=== PATIENT | male | born 1955 | race Caucasian/White ===

== ENCOUNTER 2024-09-21 12:02 | Emergency (ER) | payer MEDICARE, BC, SELFPAY ==
[2024-09-21 12:11] VITALS: BP 143/80; PULSE 70; RESP 18; TEMP 36.5; O2SAT 95; BMI 360.1
[2024-09-21 12:13] VITALS: PULSE 67
--- NOTE | 2024-09-21 12:13 | XR_ITS ---
Examination: CT brain head without contrast. 2-D sagittal coronal reconstructions Date and time of exam:September 21, 2024 1223 hours INDICATIONS: Stroke alert, onset slurred vision severe headache beginning 8:00 AM this morning CTDI: vol (mGy):59.1 DLP: (mGycm):1187 Technique: Multiple CT axial sections of the brain have been obtained, 5 mm slice thickness. Contrast has not been administered. 2-D sagittal, coronal reconstructions have been obtained Low dose protocols were performed. One or more of the following dose reduction techniques were used; automated exposure control, adjustment of the mA and/or KV according to patient size, use of iterative reconstruction technique. Findings: No significant ventricular enlargement. Intra-axial or extra-axial hemorrhage density is not seen. No mass effect or midline shift Basal cisterns are not remarkable. Fourth ventricle is midline. Cranial vault intact. Impression: Negative for acute hemorrhage, mass effect or midline shift
--- NOTE | 2024-09-21 12:13 | XR_ITS ---
Examination: CTA carotids with intravenous contrast CTA brain, head with intravenous contrast. 2-D sagittal, coronal reconstructions. 3-D reconstructions. Exam date and time: September 21, 2024 1227 hours INDICATIONS: Stroke alert, onset focal neurologic deficit including blurred vision beginning 8:00 AM this morning CTDI: vol (mGy) 25.7 DLP: (mGycm) 157 Technique: Multiple CTA axial brain, head carotid images post intravenous contrast injection 75 cc, Isovue-370. 2-D sagittal, coronal reconstructions. 3-D reconstructions, 3-D post processing including vascular maximum intensity projection images. Low dose protocols were performed. One or more of the following dose reduction techniques were used; automated exposure control, adjustment of the mA and/or KV according to patient size, use of iterative reconstruction technique. Findings: 6 mm left thyroid nodule No significant common carotid carotid bifurcation or internal carotid artery stenoses Codominant vertebral arteries with no critical stenoses Moderate calcification juxtasellar portions of both internal carotid arteries No cerebral large vessel arterial occlusions or thrombus IMPRESSION: No significant neck arterial stenoses No cerebral large vessel arterial occlusions or thrombus 6 mm left thyroid nodule
--- NOTE | 2024-09-21 12:13 | EKG_ITS ---
[facility] Test Date: 2024-09-21 Pat Name: FRANCISCO CHRISTIANSON Department: Room: - Gender: Male Manager Parking: : [id number] Requested By: Pablo Altamirano Order Number: [id number] Reading MD: Pablo Altamirano Measurements Intervals Holcomb Rate: 63 P: -62 UT: 217 QRS: 0 QRSD: 117 T: 62 QT: 423 QTc: 436 Interpretive Statements ECTOPIC ATRIAL RHYTHM WITH FIRST DEGREE AV BLOCK POSSIBLE LEFT ATRIAL ENLARGEMENT [-0.1mV P-WAVE IN V1/V2] MODERATE INTRAVENTRICULAR CONDUCTION DELAY [110+ ms QRS DURATION] Compared to ECG 03/12/2024 00:18:39 Ectopic atrial rhythm now present First degree AV block now present T-wave abnormality no longer present /store/S0/[id number]/ecg/[id number].pdf
--- NOTE | 2024-09-21 12:13 | PD.EDRME ---
Rapid Medical Screening Exam E Arrival date/time: 09/21/24 12:02 68-year-old male with a history of hypertension presents to the emergency room with a chief complaint of left-sided headache, left-sided facial numbness, uneven pupils, and was sent by his primary care provider Dr. Dwyer to rule out a stroke. I have greeted and performed a focused initial assessment of this patient. A comprehensive ED assessment and evaluation of the patient, analysis of all test results, and completion of the medical decision making process will be conducted by additional ED providers. Chief Complaint: Headache Vital signs: Vital Signs Temperature 97.7 F 09/21/24 12:11 Pulse Rate 70 09/21/24 12:11 Respiratory Rate 18 09/21/24 12:11 Blood Pressure 143/80 H 09/21/24 12:11 Pulse Oximetry (%) 95 09/21/24 12:11 Oxygen Delivery Method Room Air 09/21/24 12:11 Vital signs reviewed by provider: Yes
[2024-09-21 12:31] LABS: Basophils % (Auto) 0 % (0-2.5); Eosinophils % (Auto) 0 % (0-10); Hematocrit 45.5 % (41.0-53.0); Hemoglobin 15.1 g/dL (13.5-16.0); Immature Granulocytes % (Auto) 0 % (0-0); Immature Granulocytes Auto 0.02 Thou/mm3 (0.00-0.00); Lymphocytes # (Auto) 0.9 Thou/mm3 (1.0-4.8); Lymphocytes % (Auto) 10 % (10-50); Mean Corpuscular HGB Conc 33.2 g/dl (31.0-37.0); Mean Corpuscular Hemoglobin 27.5 pg (25.0-35.0); Mean Corpuscular Volume 83 fL (80-100); Monocytes # (Auto) 0.3 Thou/mm3 (0.0-0.8); Monocytes % (Auto) 3 % (0-12); Neutrophils # (Auto) 7.8 Thou/mm3 (1.8-7.7); Neutrophils % (Auto) 86 % (37-80); Nucleated Red Blood Cell % 0 /100 WBC (0); Platelet Count 294 Thou/mm3 (140-440); RDW Standard Deviation 40.8 fL (35.1-43.9); Red Blood Count 5.49 Miln/mm3 (4.50-5.90); White Blood Count 9.1 Thou/mm3 (3.8-10.6)
[2024-09-21 12:46] LABS: Partial Thromboplastin Time 25.4 Seconds (22.0-36.0); Prothrombin Time 11.3 Seconds (9.0-12.2)
[2024-09-21 12:51] LABS: B-Type Natriuretic Peptide 32 pg/mL (0-100)
--- NOTE | 2024-09-21 12:55 | PD.EDHA ---
ED Headache RME/HPI General Chief Complaint: Headache Stated Complaint: SPRING FEW DAYS, WORSE SINCE YEST, R/O CVA FROM MD Time Seen by Provider: 09/21/24 12:27 Arrival date/time: 09/21/24 12:02 RME / HPI RME / HPI Narrative: 09/21/24 12:02 68-year-old male with a history of hypertension presents to the emergency room with a chief complaint of left-sided headache, left-sided facial numbness, uneven pupils, and was sent by his primary care provider Dr. Dwyer to rule out a stroke. I have greeted and performed a focused initial assessment of this patient. A comprehensive ED assessment and evaluation of the patient, analysis of all test results, and completion of the medical decision making process will be conducted by additional ED providers. DR. TYSON MAIN ED EVALUATION: 68 year old male with history of hypertension presents to the ED sent by PCP Dr. Dwyer for evaluation of headache that began spontaneously last night at 8pm while watching TV. Accompanied by left eye pain, described as stabbing in sensation that is felt inside and behind the eye, left eye blurred vision, and seeing halos. Patient reports history of headaches in the past where it also begins with left eye pain and blurred vision. States symptoms persisted this morning with increased blurred vision and consulted with PCP who advised he come here for further evaluation/treatment. Patient mentioned he has been evaluated by burrito maker before and told he has increased eye pressures and is in the process of being referred to see ophthalmology. Denies shon photophobia. Denies fevers, chills, loss of function/movement. Related Data Home Medications ?Medication ?Instructions ?Recorded ?Confirmed alfuzosin 10 mg tablet,extended 10 mg PO QDAY 08/30/23 08/30/23 release 24 hr amlodipine 5 mg tablet 5 mg PO HS 08/30/23 08/30/23 losartan 100 12.5 tab PO QDAY 08/30/23 09/02/23 mg-hydrochlorothiazide 12.5 mg tablet tadalafil 5 mg tablet 5 mg PO QDAY 08/30/23 08/30/23 meloxicam 15 mg tablet 15 mg PO DAILY 09/02/23 09/02/23 Previous Rx's ?Medication ?Instructions ?Recorded acetazolamide 250 mg tablet 250 mg PO BID #3 tabs 09/21/24 brimonidine 0.1 %-dorzolamide 2 % 1 drp ophthalmic (eye) BID #2 mL 09/21/24 eye drops latanoprost 0.005 % eye drops 1 drp ophthalmic (eye) QPM #2.5 mL 09/21/24 timolol maleate 0.5 % eye drops 1 drp ophthalmic (eye) BID #5 mL 09/21/24 Allergies Allergy/AdvReac Type Severity Reaction Status Date / Time erythromycin base Allergy Intermediate Agitated Verified 09/21/24 12:05 Review of Systems Review of Systems Narrative Review of Systems: Gen: No fever, no chills, no weight loss EYES: No discharge, + visual changes,+pain HEENT: No ear pain, no congestion, no sore throat PULM: no shortness of breath, no cough, no congestion CV: No chest pain, no dyspnea on exertion, no palpitations, no chest tightness GI: No nausea, no vomiting, no diarrhea, no pain, no constipation : No frequency, no urgency,? no dysuria Musc/skel: No joint pain, no back pain Skin: No rash, no ecchymosis, no lesions Psyc: No hallucinations, no depression Heme/Lymph: No easy bleeding or bruising tendencies Neuro: No weakness, + headache Past Medical History Past Medical History CARDIAC: Positive Cardiac Disorders and Hypertension RESPIRATORY: Positive Sleep Apnea GASTROINTESTINAL: Positive Gastrointestinal Disorders (hernia) GENITOURINARY: Positive Genitourinary Disorders, Prostate Cancer and Benign Prostatic Hyperplasia MUSCULOSKELETAL: Positive Musculoskeletal Disorders and Arthritis OTHER HISTORY: Positive Cancer and Prostate Cancer Family History FAMILY HISTORY: Negative Family Cardiac Disorders Surgical History SURGICAL: Positive Joint Replacement; Negative Cardiac Surgery or Abdominal Surgery Social History SMOKING STATUS: Current every day smoker ED Exam Narrative Physical exam: GENERAL APPEARANCE: AxOx4, nontoxic appearing HEENT: NC, AT. MMM. Left eye is injected, anterior chamber is slightly cloudy, pupil is nonreactive. Pressure in the right eye is 18, pressure in the left eye is not measurable. EOMI, oropharynx clear. NECK: Supple without lymphadenopathy. No stiffness or restricted ROM. HEART: Normal rate and regular rhythm, normal S1/S1, no m/r/g LUNGS: CTAB, moving air well. No crackles or wheezes are heard. ABDOMEN: Soft, nontender, nondistended with good bowel sounds heard. BACK: No midline C/T/L spine pain or deformity, No CVAT, no obvious deformity. EXTREMITIES: Without cyanosis, clubbing or edema. MUSCULOSKELETAL: FROM of all major joints, no chest tenderness NEUROLOGICAL: Grossly nonfocal. Alert and oriented, moving all 4 extremities. CN not formally tested but appear grossly intact. Skin: Warm and dry without any rash. Course Quality Measures none Orders Category Date Time Status Bedside Blood Glucose NOW Care 09/21/24 12:13 Active [employer] Worker NOW Care 09/21/24 12:13 Active Continuous Pulse Oximetry NOW Care 09/21/24 12:13 Completed EKG (ED ONLY) *Do not use* NOW Care 09/21/24 12:13 Completed EKG (ED ONLY) *Do not use* NOW Care 09/21/24 14:57 Completed Insert IV NOW Care 09/21/24 12:13 Active NIH Stroke Scale now Care 09/21/24 12:13 Active NPO NOW Care 09/21/24 12:13 Active Nurse Swallow Screen x1 Care 09/21/24 12:13 Active Consult to Neurology / Tele-Neurology Routine Cons 09/21/24 12:13 Active Referral - Mate Fishing Vessel Stat Cons 09/21/24 14:[address] angio stroke protocol Stat Exams 09/21/24 12:[address] stroke protocol Stat Exams 09/21/24 12:13 Completed EKG (ED Only) Stat Exams 09/21/24 12:13 Draft EKG (ED Only) Stat Exams 09/21/24 14:57 Draft B-Type Natriuretic Peptide Stat Lab 09/21/24 12:17 Completed CBC Stat Lab 09/21/24 12:17 Completed Comprehensive Metabolic Panel Stat Lab 09/21/24 12:17 Completed Drug Screen,Urine Stat Lab 09/21/24 12:13 Ordered Magnesium Stat Lab 09/21/24 12:17 Completed Partial Thromboplastin Time Stat Lab 09/21/24 12:17 Completed Prothrombin Time with INR Stat Lab 09/21/24 12:17 Completed Troponin I Stat Lab 09/21/24 12:17 Completed Urinalysis Stat Lab 09/21/24 12:13 Ordered Urine Culture Stat Lab 09/21/24 12:13 Ordered ACETAzolaMIDE SOD [Diamox Inj] 500 mg Med 09/21/24 13:54 Discontinued Sodium Chloride 0.9% [Ns] 50 ml IV X1 Brimonidine Op Tierra 0.1% [Alphagan Op Tierra 0.1%] Med 09/21/24 13:54 Discontinued 1 drop BOTH EYES X1 ONE DiphenhydrAMINE INJ [Benadryl Inj] Med 09/21/24 13:33 Discontinued 50 mg IVP X1 ONE Ketorolac Inj [Toradol Inj] Med 09/21/24 13:33 Discontinued 15 mg IVP X1 ONE Latanoprost Op Tierra 0.005% [Xalatan Op Tierra 0.005%] Med 09/21/24 13:54 Discontinued See Dose Instructions LEFT EYE X1 ONE Metoclopramide Inj [Reglan Inj] Med 09/21/24 13:33 Discontinued 10 mg IV X1 ONE Morphine Inj Med 09/21/24 14:22 Discontinued 6 mg IVP Q1H ONE TETRACAINE Op Tierra 0.5% [Pontocaine Op Tierra 0.5%] Med 09/21/24 13:33 Discontinued 1 drop BOTH EYES X1 ONE Timoptic Op Tierra 0.5% Med 09/21/24 13:56 Discontinued 1 drop LEFT EYE X1 ONE Reevaluation(s) Reevaluation #1: We reviewed all the results, analysis, and treatment plans. Patient is amenable to discharge. Strict return precautions were outlined. Patient was discharged in stable condition. Aware of brush head maker Dr. Vega recommendation and will be seen in his office tomorrow at 08:00 am. Time: 16:50 Vital Signs Vital signs: Vital Signs Temperature 97.7 F 09/21/24 12:11 Pulse Rate 70 09/21/24 12:11 Respiratory Rate 18 09/21/24 12:11 Blood Pressure 143/80 H 09/21/24 12:11 Pulse Oximetry (%) 95 09/21/24 12:11 Oxygen Delivery Method Room Air 09/21/24 12:11 Pulse ox is 95% on room air which is adequate. Headache Patient data External records reviewed:: [facility] previous records (I reviewed ED visit on 03/12/2024 ) Clinical information provided by:: patient Social determinants that could affect healthcare access:: none Patient has the following chronic illnesses:: HTN How is presenting disease/condition affected by chronic disease/condition?: exacerbated by Evaluation data The following diagnostics were reviewed and interpreted by me:: lab results, radiology exam(s) and EKG tracing(s) Lab and/or radiology exams considered but not ordered:: None Interpretation Summary: Ordering Physician: Pablo Antonio Date of Service: 09/21/24 Procedure(s): CT stroke protocol Accession Number(s): [id number] cc: Magdalena Rojas NP; Pablo Antonio; Sami Amos MD~ Examination: CT brain head without contrast. 2-D sagittal coronal reconstructions Date and time of exam:September 21, 2024 1223 hours INDICATIONS: Stroke alert, onset slurred vision severe headache beginning 8:00 AM this morning CTDI: vol (mGy):59.1 DLP: (mGycm):1187 Technique: Multiple CT axial sections of the brain have been obtained, 5 mm slice thickness. Contrast has not been administered. 2-D sagittal, coronal reconstructions have been obtained Low dose protocols were performed. One or more of the following dose reduction techniques were used; automated exposure control, adjustment of the mA and/or KV according to patient size, use of iterative reconstruction technique. Findings: No significant ventricular enlargement. Intra-axial or extra-axial hemorrhage density is not seen. No mass effect or midline shift Basal cisterns are not remarkable. Fourth ventricle is midline. Cranial vault intact. Impression: Negative for acute hemorrhage, mass effect or midline shift Dictated By: Sami Amos MD Signed By:<Electronically signed by Sami Amos MD in OV>09/21/24 1227 Ordering Physician: Pablo Antonio Date of Service: 09/21/24 Procedure(s): CT angio stroke protocol Accession Number(s): [id number] cc: Magdalena Rojas NP; Pablo Antonio; Sami Amos MD~ Examination: CTA carotids with intravenous contrast CTA brain, head with intravenous contrast. 2-D sagittal, coronal reconstructions. 3-D reconstructions. Exam date and time: September 21, 2024 1227 hours INDICATIONS: Stroke alert, onset focal neurologic deficit including blurred vision beginning 8:00 AM this morning CTDI: vol (mGy) 25.7 DLP: (mGycm) 157 Technique: Multiple CTA axial brain, head carotid images post intravenous contrast injection 75 cc, Isovue-370. 2-D sagittal, coronal reconstructions. 3-D reconstructions, 3-D post processing including vascular maximum intensity projection images. Low dose protocols were performed. One or more of the following dose reduction techniques were used; automated exposure control, adjustment of the mA and/or KV according to patient size, use of iterative reconstruction technique. Findings: 6 mm left thyroid nodule No significant common carotid carotid bifurcation or internal carotid artery stenoses Codominant vertebral arteries with no critical stenoses Moderate calcification juxtasellar portions of both internal carotid arteries No cerebral large vessel arterial occlusions or thrombus IMPRESSION: No significant neck arterial stenoses No cerebral large vessel arterial occlusions or thrombus 6 mm left thyroid nodule Dictated By:Sami Amos MD Signed By:<Electronically signed by Sami Amos MD in OV>09/21/24 1347 Medications / Prescriptions Medications or Prescriptions considered but not ordered:: None Medication administrations:: Medication Administration History Discontinued Medications Brimonidine Tartrate (Brimonidine Op Tierra 0.1% 5 Ml Btl) 1 drop BOTH EYES X1 ONE Stop: 09/21/24 13:55 Last Admin: 09/21/24 14:21 Dose: 1 drop Documented By: DANNI Diphenhydramine HCl (Diphenhydramine Inj 50 Mg/Ml Vial) 50 mg IVP X1 ONE Stop: 09/21/24 13:34 Last Admin: 09/21/24 13:39 Dose: 50 mg Documented By: IZZY Acetazolamide Sodium 500 mg/ (Sodium Chloride) 50 mls @ 100 mls/hr IV X1 ONE Stop: 09/21/24 14:23 Last Infusion: 09/21/24 15:21 Dose: Infused Documented By: Admin: 09/21/24 14:51 Dose: 100 mls/hr Documented By: IZZY Ketorolac Tromethamine (Ketorolac Inj 30 Mg/Ml Vial) 15 mg IVP X1 ONE Stop: 09/21/24 13:34 Last Admin: 09/21/24 13:39 Dose: 15 mg Documented By: IZYZ Latanoprost (Latanoprost Op Tierra 0.005% 2.5 Ml Btl) 0 drop LEFT EYE X1 ONE Stop: 09/21/24 13:55 Last Admin: 09/21/24 14:28 Dose: 1 drop Documented By: DANNI Metoclopramide HCl (Metoclopramide Inj 5 Mg/Ml Vial 2 Ml) 10 mg IV X1 ONE; Protocol Stop: 09/21/24 13:34 Last Admin: 09/21/24 13:43 Dose: 10 mg Documented By: IZZY Morphine Sulfate (Morphine Sulf Inj 10 Mg/Ml Vial) 6 mg IVP Q1H ONE Stop: 09/21/24 14:23 Last Admin: 09/21/24 14:25 Dose: 6 mg Documented By: DANNI Tetracaine HCl (Tetracaine Pf Op Tierra 0.5% 4 Ml Drpette) 1 drop BOTH EYES X1 ONE Stop: 09/21/24 13:34 Last Admin: 09/21/24 13:45 Dose: 1 drop Documented By: IZZY Comments: MEDICATION GIVEN BY DR. TYSON Timolol Maleate (Timolol Op Tierra 0.5% 5 Ml Btl) 1 drop LEFT EYE X1 ONE Stop: 09/21/24 13:57 Last Admin: 09/21/24 14:20 Dose: 1 drop Documented By: DANNI Comments: left eye See above Consultations Consultation(s) initiated? (list below): Yes Consultation #1 (Physician, Specialty, Details): I spoke with transfer nurse at [facility]. Discussed patients PMHx, HPI, ED course, exam findings, labs, and radiology results. Time: 14:00 Consultation #2 (Physician, Specialty, Details): I spoke with brush head maker Dr. Rodriguez at [facility]. Made aware of medications given, Timolol and Brimonidine, causing atrial dysrhythmia. We discussed other mediation options which include Metipranolol however advised holding off for now due to dysrhythmia. Time: 16:30 Consultation #3 (Physician, Specialty, Details): Dr. Vega reports he will see patient tomorrow at 08:00 AM in his office. Time: 16:50 Diagnosis Differential diagnosis headache: migraine, tension headache, subarachnoid hemorrhage and headache Most likely diagnosis given after review of the tests above:: Acute closed-angle glaucoma Admission Indicated Admission indicated?: not indicated Admission Request Was there a request for admission?: No Disposition Plan Disposition Plan: Discharge Discharge Attestation Discharge Attestation: The patient and all family members were given an opportunity to ask questions and understood the discharge instructions. Discharge instructions specifically effects, indications for sooner follow up or return to the emergency department, and the expected course of current diagnosis. Patient condition: Stable Discharge Plan Plan Patient Disposition: HOME (Self Care) Prescriptions/Referrals Prescriptions/Med Rec: No Action alfuzosin 10 mg tablet extended release 24 hr 10 mg PO QDAY amlodipine 5 mg tablet 5 mg PO HS Patient Comments: TAKE 1 TABLET BY MOUTH EVERY DAY tadalafil 5 mg tablet 5 mg PO QDAY Patient Comments: TAKE 1 TABLET BY MOUTH EVERY DAY NEEDED FOR ERECTILE DYSFUNCTION losartan-hydrochlorothiazide 100-12.5 mg tablet 12.5 tab PO QDAY Patient Comments: TAKE ONE TABLET BY MOUTH ONE TIME DAILY 90 DAYS meloxicam 15 mg tablet 15 mg PO DAILY Patient Comments: TAKE 1 TABLET BY MOUTH EVERY DAY Referrals: Magdalena Rojas NP [Primary Care Provider] - In 1 week Gigi Vega MD [Referring Provider] - 09/22/24 8:00 am (Phone number: [phone] Present to the office at 08:00 AM tomorrow and let the waterfront director know that you were in the ED, spoke to Dr. Vega, and are an on-call patient. ) Problem List Clinical Impression: Acute closed-angle glaucoma Patient/Caregiver Discharge Instructions Education Materials: ED Glaucoma, Narrow-Angle (Acute) Print Language: Cypriot Stand Alone Forms: [facility] Award Info., Patient Portal Info Letter
[2024-09-21 12:57] LABS: Alanine Aminotransferase 13 U/L (10-49); Albumin, Serum 4.5 gm/dL (3.4-4.8); Albumin/Globulin Ratio 1.4 (1.2-2.2); Alkaline Phosphatase 74 U/L (46-116); Anion Gap 9 (7-16); Aspartate Amino Transferase 15 U/L (0-34); BUN/Creatinine Ratio 14 Ratio (12-20); Bilirubin,Total 0.7 mg/dL (0.3-1.2); Blood Urea Nitrogen 14 mg/dL (9-23); Calcium 9.1 mg/dL (8.3-10.6); Calcium (Corrected) 9.1 mg/dL (8.5-10.1); Carbon Dioxide 22.6 mMol/L (20.0-31.0); Chloride 104 mMol/L (98-107); Estimated Creatinine Clearance 477.4 mL/min (>60); Globulin 3.3 gm/dL (2.3-3.5); Glucose 151 mg/dL (74-106); Osmolality,Calculated 275 (275-295); Potassium 3.8 mMol/L (3.4-5.1); Sodium 136 mMol/L (136-145); Total Protein 7.8 gm/dL (5.7-8.2); Troponin I < 0.020 ng/mL (0.0-0.045); eGFR > 60 See Note
[2024-09-21 13:03] VITALS: BP 146/90; PULSE 66; RESP 18; O2SAT 96
[2024-09-21] MEDS: KETOROLAC INJ 30 MG/ML VIAL 15 MG IVP (13:39)
[2024-09-21] MEDS: DiphenhydrAMINE INJ 50 MG/ML VIAL IVP (13:39)
[2024-09-21] MEDS: METOCLOPRAMIDE INJ 5 MG/ML VIAL 2 ML 10 MG IV (13:43)
[2024-09-21] MEDS: TETRACAINE PF OP SOL 0.5% 4 ML DRPETTE 1 DROP BOTH EYES (13:45)
--- NOTE | 2024-09-21 13:52 | ESCONSULT_ITS ---
Tele Neuro Consultation Consultation Date 09/21/24 Most Recent Vital Signs Last Vital Signs Temp 97.7 F 09/21/24 12:11 Pulse 66 09/21/24 13:03 Resp 18 09/21/24 13:03 BP 146/90 H 09/21/24 13:03 Pulse Ox 96 09/21/24 13:03 O2 Del Method Room Air 09/21/24 13:03 Laboratory-Coagulation Panel PT 11.3 Seconds (9.0-12.2) 09/21/24 12:17 INR 1.0 (0.9-1.3) 09/21/24 12:17 APTT 25.4 Seconds (22.0-36.0) 09/21/24 12:17 Consultation Narrative [facility]rology [facility] Patient Name:???Elijah Leblanc Date of :???1955 Identification Number:??? Date of Service:???09/21/2024 12:22:42 Diagnosis:?H53.8 - Blurred Vision ?G44.59 - Other complicated headache syndrome Impression: ?68 yr old man hx of HTN, comes to ER with L eye retro orbital pain and blurred vision L eye tearing. He reported ssx started last night at 8 pm, and persist now. He has no hx of migraine, he has had these symptoms in past, unclear diagnosis. ?He has had vomiting also due to pain, he has photophobia. ?Exam- L facial droop, L face numbness, L pupil sluggish reactive, redness, extraocular muscles intact and no vf cut. nih 2. ?CT head no acute changes. ? ?Diff Dx: r/o ophthalmological etiology, retinal detachment, vitreous hemorrhage, migraine, cluster headache, r/o aneurysm, CRAO, CVA, other, not iv thrombolytic candidate. Our recommendations are outlined below. Recommendations: ? Stroke/Telemetry Floor ? Neuro Checks ? Bedside Swallow Eval ? DVT Prophylaxis ? IV Fluids, Normal Saline ? Head of Bed 30 Degrees ? Euglycemia and Avoid Hyperthermia (PRN Acetaminophen) ?- CTA head neck pending r/o aneurysm ?- rec ophthalmological evaluation and exam ?- migraine/ cluster headache symptomatic treatment ?- CVA work up to with MRI brain to r/o CVA if no ophthalmological cause found ?- Neuro fup ?d/w pt, RN ?d/w ER Dr Manning all the recs. Sign Out: ? Discussed with Emergency Department Provider Advanced Imaging:Advanced imaging has been ordered. Results pending. Metrics: Last Known Well: 09/20/2024 20:00:00 Dispatch Time: 09/21/2024 12:22:42 Arrival Time: 09/21/2024 12:02:00 Initial Response Time: 09/21/2024 12:30:24Symptoms: L eye blurry vision, headache. Initial patient interaction: 09/21/2024 12:35:01 NIHSS Assessment Completed: 09/21/2024 12:40:01Patient is not a candidate for Thrombolytic. Thrombolytic Medical Decision: 09/21/2024 12:41:15Patient was not deemed candidate for Thrombolytic because of following reasons: LKW outside 4.[address] head showed no acute hemorrhage or acute core infarct. Primary Provider Notified of Diagnostic Impression and Management Plan on: 09/21/2024 13:01:44 History of Present Illness:Patient is a 68 year old Male. Patient was brought by private transportation with symptoms of L eye blurry vision, headache. 68 yr old man hx of HTN, comes to ER with L eye retro orbital pain and blurred vision L eye tearing. He reported ssx started last night at 8 pm, and persist now. He has no hx of migraine, he has had these symptoms in past, unclear diagnosis. He has had vomiting also due to pain, he has photophobia. Exam- L facial droop, L face numbness, L pupil sluggish reactive, redness, extraocular muscles intact and no vf cut. nih 2. ? Past Medical History: ?Hypertension Other PMH:? prostate ca Medications: No Anticoagulant use? No Antiplatelet use Reviewed EMR for current medications Allergies:? Reviewed Social History: Smoking: Yes Family History: There is no family history of premature cerebrovascular disease pertinent to this consultation ROS : 14 Points Review of Systems was performed and was negative except mentioned in HPI. Past Surgical History: There Is No Surgical History Contributory To Today?s Visit ? Examination: BP(150/94),?Pulse(70),?Blood Glucose(152) 1A: Level of Consciousness - Alert; keenly responsive?+ 0 1B: Ask Month and Age - Both Questions Right?+ 0 1C: Blink Eyes & Squeeze Hands - Performs Both Tasks?+ 0 2: Test Horizontal Extraocular Movements - Normal?+ 0 3: Test Visual Laura - No Visual Loss?+ 0 4: Test Facial Palsy (Use Grimace if Obtunded) - Minor paralysis (flat nasolabial fold, smile asymmetry)?+ 1 5A: Test Left Arm Motor Drift - No Drift for 10 Seconds?+ 0 5B: Test Right Arm Motor Drift - No Drift for 10 Seconds?+ 0 6A: Test Left Leg Motor Drift - No Drift for 5 Seconds?+ 0 6B: Test Right Leg Motor Drift - No Drift for 5 Seconds?+ 0 7: Test Limb Ataxia (FNF/Heel-Dockery) - No Ataxia?+ 0 8: Test Sensation - Mild-Moderate Loss: Less Sharp/More Dull?+ 1 9: Test Language/Aphasia - Normal; No aphasia?+ 0 10: Test Dysarthria - Normal?+ 0 11: Test Extinction/Inattention - No abnormality?+ 0 NIHSS Score:?2 NIHSS Free Text :?headache, L blurred vision, L pupil dilated Pre-Morbid Modified Sakina Scale:1 Points = No significant disability despite symptoms; able to carry out all usual duties and activities Spoke with :?ED Dr Manning This consult was conducted in real time using interactive audio and video technology. Patient was informed of the technology being used for this visit and agreed to proceed. Patient located in hospital and provider located at home/office setting. Patient is being evaluated for possible acute neurologic impairment and high probability of imminent or life-threatening deterioration. I spent total of 45 minutes providing care to this patient, including time for face to face visit via telemedicine, review of medical records, imaging studies and discussion of findings with providers, the patient and/or family. Dr Sonia Ng [facility] For Inpatient follow-up with [facility] physician please call [facility] at . As we are not an outpatient service for any post hospital discharge needs please contact the hospital for assistance. If you have any questions for the [facility] physicians or need to reconsult for clinical or diagnostic changes please contact us via [facility] at . ?
[2024-09-21] MEDS: TIMOLOL OP SOL 0.5% 5 ML BTL 1 DROP LEFT EYE (14:20)
[2024-09-21] MEDS: BRIMONIDINE OP SOL 0.1% 5 ML BTL 1 DROP BOTH EYES (14:21)
[2024-09-21] MEDS: MORPHINE SULF INJ 10 MG/ML VIAL 6 MG IVP (14:25)
[2024-09-21] MEDS: LATANOPROST OP SOL 0.005% 2.5 ML BTL LEFT EYE (14:28)
[2024-09-21] MEDS: ACETAzolaMIDE SOD 500 MG in SODIUM CHLORIDE 0.9% 50 ML 100 MG IV (14:51)
--- NOTE | 2024-09-21 14:57 | EKG_ITS ---
[facility] Test Date: 2024-09-21 Pat Name: FRANCISCO CHRISTIANSON Department: Room: - Gender: Male [employer] Associate: : 1955 Requested By: Peter Manning Order Number: [id number] Reading MD: Peter Manning Measurements Intervals Maynard Rate: 54 P: -67 DE: 214 QRS: 21 QRSD: 112 T: 76 QT: 458 QTc: 436 Interpretive Statements ECTOPIC ATRIAL BRADYCARDIA WITH FIRST DEGREE AV BLOCK MODERATE INTRAVENTRICULAR CONDUCTION DELAY [110+ ms QRS DURATION] Compared to ECG 09/21/2024 13:05:59 Bradycardia, nonsinus now present Ectopic atrial rhythm no longer present /store/S0/[id number]/ecg/[id number].pdf
[2024-09-21 15:36] VITALS: BP 145/93; PULSE 62; RESP 14; TEMP 36.7; O2SAT 96
--- NOTE | 2024-09-21 15:36 | PC.CC ---
Addendum entered by Kaela Ingram RN 09/21/24 16:50: Dr. Rodriguez spoke to Dr. Manning, per Dr. Manning and Lori at [facility], pt does not need transfer at this time, pt can be dc and follow up with Dr. Rodriguez first thing in the morning, all clinic information given to Dr. Manning Original Note: Made aware by Dr. Manning that patient needs to be transferred for opthamology services for dx of acute closed capo glaucoma, spoke to Lori at [facility] for possible transfer, chart faxed, images pushed. Dr. Manning now speaking to Lori.
[2024-09-21 17:22] VITALS: BP 117/77; PULSE 87; RESP 16; TEMP 36.7; O2SAT 99
== END 2024-09-21 17:23 | disposition home or self-care (01) ==
PROVIDERS: Nurse Practitioner Family; Emergency Provider Emergency Medicine; PCP Nurse Practitioner Family
DX: H40.219 Acute angle-closure glaucoma, unspecified eye (principal); I10 Essential (primary) hypertension; E04.1 Nontoxic single thyroid nodule; F17.210 Nicotine dependence, cigarettes, uncomplicated; Z85.46 Personal history of malignant neoplasm of prostate
CPT/HCPCS: 36415; 70450; 70496; 70498; 80053; 80307; 81001; 83735; 83880; 84484; 85025; 85610; 85730; 87086; 93005; 96365; 96375; 99285; A4649; J1120; J1200; J1885; J2270; J2765; Q9967